=== PATIENT | male | born 2000 | race Caucasian/White ===

== ENCOUNTER 2019-04-05 20:20 | Emergency (ER) | payer OTHER ==
[~2019-04-05] VITALS: Ht 193 cm; Wt 68.2 kg
[2019-04-05 20:32] VITALS: TEMP 99.8
[2019-04-05] MEDS ORDERED: FLEXERIL 1010 MG/TAB PO (21:19)
[2019-04-05] MEDS ORDERED: MOTRIN 800800 MG/TAB PO (21:19)
[2019-04-05 21:29] VITALS: BP 128/78; PULSE 72
== END 2019-04-05 21:29 | disposition home or self-care (01) ==
LOC: COL.ER 20:20
DX: S13.4XXA Sprain of ligaments of cervical spine, initial encounter (principal); S63.502A Unspecified sprain of left wrist, initial encounter; F31.9 Bipolar disorder, unspecified; V43.52XA Car driver injured in collision with other type car in traffic accident, initial encounter